=== PATIENT | male | born 1980 ===

== ENCOUNTER 2017-03-17 23:34 | Emergency (ER) | payer MEDICAID ==
[2017-03-17 23:35] VITALS: BMI 40.1
[2017-03-17 23:43] VITALS: BP 143/82; PULSE 109; RESP 20; TEMP 98.9; O2SAT 96
--- NOTE | 2017-03-17 23:57 | C.PDOC ---
History Of Present Illness Patient is a 36 y/o male who presents to the ED with a complaint of right ear pain for the last day. Patient notes swelling of the right ear canal and admits to using OTC spray and Tylenol with no relief. Denies any fever, ear drainage, JOHN, dizziness, or weakness. No other physical complaints at this time. Time Seen by Provider: 03/17/17 23:49 Chief Complaint (Nursing): ENT Problem History Per: Patient History/Exam Limitations: None Onset/Duration Of Symptoms: Days (1 day) Current Symptoms Are (Timing): Still Present Quality (Ear): Swelling (right ear canal) Symptoms Have Been: Continuous Past Medical History Reviewed: Historical Data, Nursing Documentation, Vital Signs Vital Signs: Last Vital Signs Temp 98.9 F 03/17/17 23:38 Pulse 109 H 03/17/17 23:38 Resp 20 03/17/17 23:38 BP 143/82 03/17/17 23:38 Pulse Ox 96 03/17/17 23:58 - Medical History PMH: No Chronic Diseases, Schizophrenia Denies: Chronic Kidney Disease Surgical History: Appendectomy, Tonsillectomy Family History: States: Diabetes, Hypertension - Social History Hx Tobacco Use: No Hx Alcohol Use: No Hx Substance Use: No - Immunization History Hx Tetanus Toxoid Vaccination: No Hx Influenza Vaccination: No Hx Pneumococcal Vaccination: No Review Of Systems Constitutional: Negative for: Fever, Weakness ENT: Positive for: Ear Pain (right ). Negative for: Ear Discharge Neurological: Negative for: Headache Physical Exam - Physical Exam Appears: Well, Non-toxic, No Acute Distress Eye(s): bilateral: Normal Inspection, EOMI Ear(s): Right: Other (swelling and erythema to ear canal; no effusion or discharge), Bilateral: Normal (TM normal) Oral Mucosa: Moist Cardiovascular: Rhythm Regular, No Murmur Respiratory: Normal Breath Sounds Neurological/Psych: Oriented x3, Normal Speech, Normal Cognition, Other (no focal deficits) ED Course And Treatment O2 Sat by Pulse Oximetry: 96 Progress Note: Cortisporin drops applied to right ear in ED. On re-eval, patient feels better and is okay with going home. Ear drops and usage instructions given to patient to continue at home until symptoms subside. Disposition Counseled Patient/Family Regarding: Diagnosis, Need For Followup, Rx Given - Disposition Referrals: Lee Miner MD [Staff Provider] - Disposition: HOME/ ROUTINE Disposition Time: 23:55 Condition: STABLE Additional Instructions: Apply ear drops to eight ear 3 x daily Follow up with ENT in 2 days TYlenol or advil for pain Return to ER if worse Prescriptions: Neomycin/Polymyxin/Hydrocortis [Cortisporin Otic Susp] 3 - 5 drop TOP TID #1 bottle Instructions: Otitis Externa (ED) Forms: [employer] (Turkmen) - Clinical Impression Clinical Impression: Otitis externa - Scribe Statement The provider has reviewed the documentation as recorded by the Scribe Camila Booth All medical record entries made by the Scribe were at my direction and personally dictated by me. I have reviewed the chart and agree that the record accurately reflects my personal performance of the history, physical exam, medical decision making, and the department course for this patient. I have also personally directed, reviewed, and agree with the discharge instructions and disposition.
[2017-03-17] MEDS ORDERED: Neomycin/Polymyxin/Hydrocort Otic Soln BOTTLE AD STA (23:58)
== END 2017-03-18 00:21 | disposition home or self-care (01) ==
LOC: C.ER 23:34
DX: H60.91 Unspecified otitis externa, right ear (principal)

== ENCOUNTER 2017-04-12 14:14 | Emergency (ER) | payer MEDICARE, MEDICAID ==
[2017-04-12 14:14] VITALS: BMI 40.1
[2017-04-12 14:41] VITALS: BP 129/85; PULSE 90; RESP 16; TEMP 97.6; O2SAT 99
[2017-04-12] MEDS ORDERED: Silver Sulfadiazine 1% Cream (20 gm) ONE ×2 (15:35)
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
== END 2017-04-12 15:58 | disposition home or self-care (01) ==
LOC: C.ER 14:14
DX: T22.212A Burn of second degree of left forearm, initial encounter (principal); X12.XXXA Contact with other hot fluids, initial encounter

== ENCOUNTER 2017-04-16 21:40 | Emergency (ER) | payer MEDICARE, MEDICAID ==
[2017-04-16 21:40] VITALS: BMI 40.1
[2017-04-16 22:03] VITALS: RESP 20
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
[2017-04-16] MEDS ORDERED: Bacitracin 500 Units/gm Oint Foilpak UD ONE (22:23)
[2017-04-16] MEDS ORDERED: Silver Sulfadiazine 1% Cream (20 gm) ONE (22:24)
[2017-04-16] MEDS ORDERED: Silver Sulfadiazine 1% Cream (20 gm) TOP STA (22:25)
[2017-04-16] MEDS ORDERED: Bacitracin Ointment 30 GM TUBE TOP ONE (22:27)
[2017-04-16 22:54] VITALS: BP 121/82; PULSE 88; TEMP 98
[2017-04-16 23:16] VITALS: O2SAT 96
== END 2017-04-16 22:56 | disposition home or self-care (01) ==
LOC: C.ER 21:40
DX: T22.212A Burn of second degree of left forearm, initial encounter (principal); X12.XXXA Contact with other hot fluids, initial encounter; F20.9 Schizophrenia, unspecified